=== PATIENT | female | born 1970 | race Caucasian/White ===

== ENCOUNTER 2022-12-06 14:13 | Outpatient (CLI) | payer BC | END 2022-12-06 14:14 | disposition home or self-care (01) | LOC: CSHRAD 14:13 | PROVIDERS: ATTEND Neurological Surgery | DX: M47.812 Spondylosis without myelopathy or radiculopathy, cervical region (principal) | CPT/HCPCS: 72040 ==

== ENCOUNTER 2023-09-13 08:10 | Outpatient (CLI) | payer BC | END 2023-09-13 08:11 | disposition home or self-care (01) | LOC: CSHMAMMO 08:10 | PROVIDERS: ATTEND Family Medicine | DX: Z12.31 Encounter for screening mammogram for malignant neoplasm of breast (principal); Z80.3 Family history of malignant neoplasm of breast | CPT/HCPCS: 77063; 77067 ==